=== PATIENT | male | born 1975 | race Two or more races ===

== ENCOUNTER 2022-05-18 09:13 | Inpatient (IN) | payer MEDICARE, MEDICAID ==
[~2022-05-18] VITALS: Ht 182.9 cm; Wt 85.0 kg
[2022-05-18 10:15] LABS: Albumin 3.8 g/dL (3.4-5.0); Calcium 8.9 mg/dL (8.5-10.1); Potassium 3.7 mmol/L (3.5-5.1)
[2022-05-18 10:19] LABS: BUN/Creatinine Ratio 33.8; Bilirubin, Total 0.6 mg/dL (0.2-1.0); Total Protein 7.6 g/dL (6.4-8.2)
[2022-05-18 10:20] LABS: Basophils # (auto) 0.1 10 ^3/uL (0-0.2); Basophils % (auto) 1.3 % (0.0-2.0); Eosinophils # (auto) 0.3 10 ^3/uL (0-0.8); Eosinophils % (auto) 6.8 % (0.0-7.0); Hematocrit 45.9 % (41.0-53.0); Hemoglobin 15.2 g/dL (13.5-17.5); Lymphocytes # (auto) 1.2 10 ^3/uL (0.4-5.4); Lymphocytes % (auto) 23.4 % (10.0-50.0); Mean Corpuscular Hemoglobin 29.3 pg (28.0-32.0); Mean Corpuscular Hgb Conc. 33.1 g/dL (32.0-36.0); Mean Corpuscular Volume 88.7 fL (80.0-100.0); Monocytes # (auto) 0.5 10 ^3/uL (0-1.3); Monocytes % (auto) 8.9 % (0.0-12.0); Neutrophils % (auto) 59.6 % (37.0-80.0); Red Blood Cells 5.17 10^6/uL (4.5-5.90); Red Cell Distribution Width 13.9 % (11.8-14.3); White Blood Cell 5.1 10^3/uL (4.4-10.8)
[2022-05-18 18:05] LABS: INR 1.03 (0.9-1.15)
[2022-05-18 18:09] LABS: Urine Bacteria NONE SEEN /hpf (None Seen); Urine Blood Negative /uL (Negative); Urine Mucus MANY (None Seen); Urine Specific Gravity 1.037 (1.001-1.035); Urine WBC 1 /hpf (0 - 3)
[2022-05-19 04:42] LABS: Basophils # (auto) 0.1 10 ^3/uL (0-0.2); Basophils % (auto) 1.2 % (0.0-2.0); Eosinophils # (auto) 0.5 10 ^3/uL (0-0.8); Eosinophils % (auto) 9.5 % (0.0-7.0); Hematocrit 42.5 % (41.0-53.0); Hemoglobin 14.3 g/dL (13.5-17.5); Lymphocytes # (auto) 1.5 10 ^3/uL (0.4-5.4); Lymphocytes % (auto) 30.7 % (10.0-50.0); Mean Corpuscular Hemoglobin 29.7 pg (28.0-32.0); Mean Corpuscular Hgb Conc. 33.6 g/dL (32.0-36.0); Mean Corpuscular Volume 88.4 fL (80.0-100.0); Monocytes # (auto) 0.5 10 ^3/uL (0-1.3); Monocytes % (auto) 10.3 % (0.0-12.0); Neutrophils # (auto) 2.3 10 ^3/uL (1.6-8.6); Neutrophils % (auto) 48.3 % (37.0-80.0); Nucleated Red Blood Cells % 0.1 %; White Blood Cell 4.8 10^3/uL (4.4-10.8)
[2022-05-19 05:06] LABS: Albumin 3.4 g/dL (3.4-5.0); BUN/Creatinine Ratio 37.3; Calcium 8.3 mg/dL (8.5-10.1); Potassium 3.9 mmol/L (3.5-5.1)
[2022-05-19 05:08] LABS: Bilirubin, Total 0.4 mg/dL (0.2-1.0); Total Protein 6.4 g/dL (6.4-8.2)
[2022-05-19] MEDS: SOD CHL 0.45% 1,000 ML IV SCH ×4 (07:58→22:56)
[2022-05-19] MEDS ORDERED: GOLYTELY 4L KIT PO ONE (12:00)
[2022-05-19 12:55] VITALS: BP 125/84
[2022-05-19 13:00] VITALS: BP 126/87
[2022-05-19 17:00] VITALS: BP 105/67
[2022-05-19 22:00] VITALS: BP 109/76
[2022-05-20 05:00] VITALS: BP 129/77
[2022-05-20] MEDS ORDERED: GOLYTELY 4L KIT PO ONE (06:00)
[2022-05-20] MEDS ORDERED: MAGNESIUM CITRATE SOLUTION 300 ML BTL PO ONE (06:00)
[2022-05-20 07:39] LABS: Basophils # (auto) 0.1 10 ^3/uL (0-0.2); Basophils % (auto) 1.3 % (0.0-2.0); Eosinophils # (auto) 0.4 10 ^3/uL (0-0.8); Hematocrit 46.2 % (41.0-53.0); Hemoglobin 15.7 g/dL (13.5-17.5); Lymphocytes # (auto) 1.4 10 ^3/uL (0.4-5.4); Lymphocytes % (auto) 36.1 % (10.0-50.0); Mean Corpuscular Hemoglobin 29.8 pg (28.0-32.0); Mean Corpuscular Volume 87.4 fL (80.0-100.0); Monocytes # (auto) 0.4 10 ^3/uL (0-1.3); Monocytes % (auto) 10.2 % (0.0-12.0); Neutrophils # (auto) 1.7 10 ^3/uL (1.6-8.6); Neutrophils % (auto) 43.4 % (37.0-80.0); Red Blood Cells 5.29 10^6/uL (4.5-5.90)
[2022-05-20 07:53] LABS: BUN/Creatinine Ratio 17.2; Calcium 8.6 mg/dL (8.5-10.1); Potassium 3.5 mmol/L (3.5-5.1)
[2022-05-20 09:00] VITALS: BP 120/84
[2022-05-20] MEDS: SOD CHL 0.45% 1,000 ML IV SCH ×2 (09:29→18:08)
[2022-05-20] MEDS ORDERED: PHENYLEPHRINE HCL 10 MG/ML VL IV ONE (11:39)
[2022-05-20] MEDS ORDERED: diphenhdrAMINE HCL 50 MG/1 ML VL ONE (12:28)
[2022-05-20] MEDS ORDERED: MIDAZOLAM HCL 5 MG/ML-1ML VIAL ONE (12:28)
[2022-05-20] MEDS ORDERED: SODIUM CHLORIDE LOCK 10 ML ONE (12:28)
[2022-05-20] MEDS ORDERED: fentaNYL CITRATE 100 MCG/2 ML VL ONE ×2 (12:29→16:02)
[2022-05-20 13:00] VITALS: BP 117/81
[2022-05-20] MEDS ORDERED: MEPERIDINE HCL (25 MG/ML) 1ML VIAL ONE (16:02)
[2022-05-20] MEDS ORDERED: MIDAZOLAM HCL 2MG/2ML 2ml VIAL (1mg/ml) ONE (16:02)
[2022-05-20] MEDS ORDERED: ePHEDrine SULFATE 50 MG/ML AMP IV PRN (16:15)
[2022-05-20] MEDS ORDERED: MORPHINE SULFATE 4 MG/ML SYR/VIAL IV PRN (16:15)
[2022-05-20] MEDS ORDERED: ONDANSETRON HCL 4 MG/2 ML VIAL IV PRN (16:15)
[2022-05-20] MEDS ORDERED: MIDAZOLAM HCL 2MG/2ML 2ml VIAL (1mg/ml) IV PRN (16:15)
[2022-05-20] MEDS ORDERED: LABETALOL HCL 5 MG/ML 4ML SYRINGE IV PRN (16:15)
[2022-05-20] MEDS ORDERED: DexAMETHasone SOD PHOS 10MG/1ML VIAL INJ ONE (16:19)
[2022-05-20] MEDS ORDERED: PROPOFOL 10 MG/ML 20 ML IV ONE (16:19)
[2022-05-20 17:48] VITALS: BP 134/84
[2022-05-20] MEDS: methylPREDNISolone SOD SUCC 40 MG/ML VL IV SCH (21:59)
[2022-05-20] MEDS: MESALAMINE 400mg Delayed Release Cap PO SCH (21:59)
[2022-05-20 22:00] VITALS: BP 134/88
[2022-05-21 05:00] VITALS: BP 119/73
[2022-05-21] MEDS: SOD CHL 0.45% 1,000 ML IV SCH (06:35)
[2022-05-21] MEDS: MESALAMINE 400mg Delayed Release Cap PO SCH (06:36)
[2022-05-21] MEDS: methylPREDNISolone SOD SUCC 40 MG/ML VL IV SCH (06:36)
[2022-05-21 09:00] VITALS: BP 128/78
[2022-05-21] MEDS ORDERED: MESA400C PO (09:49)
[2022-05-21] MEDS ORDERED: PRED20TA2 PO (09:49)
== END 2022-05-21 11:40 | disposition home or self-care (01) | DRG 386 ==
LOC: ER 09:13 → OVERFLOW 16:33 → CENTRAL 05-19 11:03
PROVIDERS: ADMIT Registered Nurse; ATTEND Internal Medicine Pulmonary Disease
PROC: 0DBN8ZX Excision of Sigmoid Colon, Via Natural or Artificial Opening Endoscopic, Diagnostic (ICD-10-PCS; principal; 2022-05-20 16:18)
DX: K51.30 Ulcerative (chronic) rectosigmoiditis without complications (principal); K92.2 Gastrointestinal hemorrhage, unspecified; R19.7 Diarrhea, unspecified; H54.7 Unspecified visual loss; Z20.822 Contact with and (suspected) exposure to COVID-19; K64.8 Other hemorrhoids; K63.9 Disease of intestine, unspecified; Z93.0 Tracheostomy status
CPT/HCPCS: 36415; 45380; 71045; 74176; 80048; 80053; 81001; 82270; 82378; 85025; 85610; 87045; 87427; G0378; J1100; J2250; J2704

== ENCOUNTER 2024-08-01 06:44 | Emergency (ER) | payer BC, MEDICAID ==
[~2024-08-01] VITALS: Ht 182.9 cm; Wt 81.7 kg
[~2024-08-01 06:44] MED LIST: MESA400C PO; PRED20TA2 PO
[2024-08-01 08:16] VITALS: BP 114/75; PULSE 77; RESP 16; TEMP 98.4; O2SAT 98
== END 2024-08-01 09:23 | disposition home or self-care (01) ==
LOC: ER 06:44
DX: R07.81 Pleurodynia (principal); W18.09XA Striking against other object with subsequent fall, initial encounter; Y93.89 Activity, other specified; Y92.89 Other specified places as the place of occurrence of the external cause; Y99.8 Other external cause status
CPT/HCPCS: 71101

== ENCOUNTER 2024-09-11 10:35 | Emergency (ER) | payer BC, MEDICAID ==
[~2024-09-11] VITALS: Ht 182.9 cm; Wt 77.5 kg
[2024-09-11] MEDS: methylPREDNISolone ACETATE 80 MG/ML VL IM ONE (11:30)
[2024-09-11 11:58] LABS: Basophils # (auto) 0 10 ^3/uL (0-0.2); Basophils % (auto) 0.4 % (0.0-2.0); Eosinophils # (auto) 0.2 10 ^3/uL (0-0.8); Eosinophils % (auto) 5.4 % (0.0-7.0); Hematocrit 44.5 % (41.0-53.0); Hemoglobin 15.2 g/dL (13.5-17.5); Lymphocytes # (auto) 0.6 10 ^3/uL (0.4-5.4); Lymphocytes % (auto) 15.6 % (10.0-50.0); Mean Corpuscular Hemoglobin 31.1 pg (28.0-32.0); Mean Corpuscular Hgb Conc. 34.1 g/dL (32.0-36.0); Mean Corpuscular Volume 91.4 fL (80.0-100.0); Monocytes # (auto) 0.4 10 ^3/uL (0-1.3); Monocytes % (auto) 10.8 % (0.0-12.0); Neutrophils # (auto) 2.6 10 ^3/uL (1.6-8.6); Neutrophils % (auto) 67.8 % (37.0-80.0); Nucleated Red Blood Cells % 0.1 %; Platelet Count (auto) 176 10^3/uL (140-450); Red Blood Cells 4.87 10^6/uL (4.5-5.90); Red Cell Distribution Width 14.4 % (11.8-14.3); White Blood Cell 3.9 10^3/uL (4.4-10.8)
[2024-09-11 12:17] LABS: Alanine Aminotransferase 24 U/L (7-40); Albumin 4.4 g/dL (3.2-4.8); Alkaline Phosphatase 78 U/L (46-116); Anion Gap 5 (5-15); Aspartate Aminotransferase 12 U/L (13-40); Blood Urea Nitrogen 18 mg/dL (9-23); Calcium 9.6 mg/dL (8.7-10.4); Carbon Dioxide 27 mmol/L (20-31); Chloride 110 mmol/L (98-107); Glucose 105 mg/dL (74-106); Potassium 4.2 mmol/L (3.5-5.1); Sodium 142 mmol/L (136-145)
[2024-09-11 12:18] LABS: Bilirubin, Total 0.4 mg/dL (0.2-1.0)
[2024-09-11 12:26] LABS: CRP High Sensitivity 1.66 mg/dL (<1.0)
[2024-09-11 13:03] VITALS: BP 134/68; PULSE 98; RESP 16; TEMP 98.4; O2SAT 95
[2024-09-11] MEDS ORDERED: DIPH25CA66 PO (13:18)
[2024-09-11] MEDS ORDERED: VALA1TAB PO (13:18)
[2024-09-11] MEDS ORDERED: VALA500T33 PO (13:18)
[2024-09-11] MEDS ORDERED: PRED20TA2 PO (13:18)
--- NOTE | 2024-09-11 13:19 | ED.PDOC ---
History of Present Illness(SKN HPI Comments 48-year-old male patient presents to the clinic for a rash to bilateral extremities in the neck. Patient reports that the rash started 4 days ago. Patient denies any new medications. Patient denies any new skin products patient denies any new foods. Patient reports that the rash is itchy in nature. Patient has been applying Benadryl cream which has helped minimally. Patient denies any shortness of breath or chest pain. Patient denies having a rash of this nature previously Chief Complaint: Rash Time Seen by MD: 10:52 Primary Care Provider: unknown History of Present Illness: Nurses Notes, Medications, Allergies Allergies: Coded Allergies: NO KNOWN ALLERGIES (Unverified , 05/18/22) Home Meds Active Scripts Valacyclovir Hcl (Valtrex) 1 Gm Tab, 1 TAB PO TID for 7 Days, #21 TAB 0 Refills Prov:[facility] 09/11/24 Prednisone (Prednisone) 20 Mg Tab, 50 MG PO DAILY for 5 Days, #5 TAB 0 Refills Prov:[facility] 09/11/24 Diphenhydramine Hcl (Benadryl Allergy) 25 Mg Cap, 2 CAP PO Q8HP PRN for 7 Days, #60 CAP 2 Refills Prov:[facility] 09/11/24 Prednisone (Prednisone) 20 Mg Tab, 40 MG PO DAILY for 14 Days, #28 TAB Prov:DOM SIFUENTES MD 05/21/22 Mesalamine (DELZICOL) 400 Mg Cap, 800 MG PO TID for 30 Days, #30 CAP Prov:DOM SIFUENTES MD 05/21/22 Information Source: Patient Mode of Arrival: Ambulatory Past Medical History Past Medical History (Other): TBI Surgical History: Denies all surgeries Family History Family History: Reviewed,noncontributory to illness Social History Smoker: Non-Smoker Alcohol: Denies ETOH Use Drugs: Denies Drug Use Lives In: Home Constitutional: denies: chills, diaphoresis, fatigue, fever, malaise, sweats, weakness, others EENTM: denies: blurred vision, double vision, ear bleeding, ear discharge, ear drainage, ear pain, ear ringing, eye pain, eye redness, hearing loss, mouth p ain, mouth swelling, nasal discharge, nose bleeding, nose congestion, nose pain, photophobia, tearing, throat pain, throat swelling, voice changes, others Respiratory: denies: cough, hemoptysis, orthopnea, SOB at rest, shortness of br eath, SOB with excertion, stridor, wheezing, others Cardiovascular: denies: chest pain, dizzy spells, diaphoresis, Dyspnea on exertion, edema, irregular heart beat, left arm pain, lightheadedness, palpitations, PND, syncope, others Gastrointestinal: denies: abdomen distended, abdominal pain, blood streaked bowels, constipated, diarrhea, dysphagia, difficulty swallowing, hematemesis, melena, nausea, poor appetite, poor fluid intake, rectal bleeding, rectal pain, vomiting, others Genitourinary: denies: burning, dysuria, flank pain, frequency, hematuria, incontinence, penile discharge, penile sore, pain, testicle pain, testicle swelling, urgency, others Neurological: denies: dizziness, fainting, headache, left sided numbness, left sided weakness, numbness, paresthesia, pre-existing deficit, right sided numbness, right sided weakness, seizure, speech problems, tingling, tremors, weakness, others Musculoskeletal: denies: back pain, gout, joint pain, joint swelling, muscle pain, muscle stiffness, neck pain, others Integumetry: reports: rash Allergic/Immunocompromised: denies: Difficulty Healing, Frequent Infections, Hives, Itching, others Hematologic/Lymphatic: denies: anemia, blood clots, easy bleeding, easy bruising, swollen glands, others Endocrine: denies: excessive hunger, excessive sweating, excessive thirst, excessive urination, flushing, intolerance to cold, intolerance to heat, unexplained weight gain, unexplained weight loss, others Psychiatric: denies: anxiety, bipolar disorder, depression, hopeless, panic disorder, schizophrenia, sleepless, suicidal, others All Other Systems: Reviewed and Negative Physical Exam General Appearance: No Apparent Distress, Normal HEENT: Normal ENT Inspection, Pharynx Normal, TMs Normal Neck: Full Range of Motion, Non-Tender, Normal, Normal Inspection Respiratory: Chest Non-Tender, Lungs Clear, No Accessory Muscle Use, No Respiratory Distress, Normal Breath Sounds Cardiovascular: No Edema, No JVD, No Murmur, No Gallop, Normal Peripheral Pulses, Regular Rate/Rhythm Breast Exam: Deferred Gastrointestinal: No Organomegaly, Non Tender, No Pulsatile Mass, Normal Bowel Sounds, Soft Genitalia: Deferred Pelvic: Deferred Rectal: Deferred Extremities: No calf tenderness, Normal capillary refill, Normal inspection, Normal range of motion, Non-tender, No pedal edema Musculoskeletal : Apperance: Normal Neurologic: Alert, 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 No rash noted to palms of hands. No rash noted to trunk of body. No rash noted to the legs. Patient complaining itchiness) Lymphatic: None, No Adenopathy Was a procedure done? Was a procedure done?: No Differential Diagnosis (INTG) Differential Diagnosis: Cellulitis Differential Diagnosis: Cellulitis, Contact Dermatitis, Herpes Zoster/Simplex, Impetigo, Scabies, Varicella Differential Diagnosis: N/A Abscess: N/A Differential Diagnosis: N/A X-Ray, Labs, Meds, VS Vital Signs Date Time Temp Pulse Resp B/P (MAP) Pulse Ox O2 Delivery O2 Flow Rate FiO2 09/11/24 13:03 98.4 99 16 134/68 (90) 95 98.4 09/11/24 13:03 98 16 95 Room Air 09/11/24 10:44 98.3 107 16 131/63 (85) 93 Lab Test 09/11/24 11:20 Range/Units White Blood Count 3.9 L 4.4-10.8 10^3/uL Red Blood Count 4.87 4.5-5.90 10^6/uL Hemoglobin 15.2 13.5-17.5 g/dL Hematocrit 44.5 41.0-53.0 % Mean Corpuscular Volume 91.4 80.0-100.0 fL Mean Corpuscular Hemoglobin 31.1 28.0-32.0 pg Mean Corpuscular Hemoglobin Concent 34.1 32.0-36.0 g/dL Red Cell Distribution Width 14.4 H 11.8-14.3 % Platelet Count 176 140-450 10^3/uL Mean Platelet Volume 8.5 6.9-10.8 fL Neutrophils (%) (Auto) 67.8 37.0-80.0 % Lymphocytes (%) (Auto) 15.6 10.0-50.0 % Monocytes (%) (Auto) 10.8 0.0-12.0 % Eosinophils (%) (Auto) 5.4 0.0-7.0 % Basophils (%) (Auto) 0.4 0.0-2.0 % Neutrophils # (Auto) 2.6 1.6-8.6 10 ^3/uL Lymphocytes # (Auto) 0.6 0.4-5.4 10 ^3/uL Monocytes # (Auto) 0.4 0-1.3 10 ^3/uL Eosinophils # (Auto) 0.2 0-0.8 10 ^3/uL Basophils # (Auto) 0 0-0.2 10 ^3/uL Nucleated Red Blood Cells 0.1 % Sodium Level 142 136-145 mmol/L Potassium Level 4.2 3.5-5.1 mmol/L Chloride Level 110 H 98-107 mmol/L Carbon Dioxide Level 27 20-31 mmol/L Anion Gap 5 5-15 Blood Urea Nitrogen 18 9-23 mg/dL Creatinine 0.90 0.700-1.30 mg/dL Glomerular Filtration Rate Calc 106 >90 mL/min BUN/Creatinine Ratio 20.0 10.0-20.0 Serum Glucose 105 74-106 mg/dL Calcium Level 9.6 8.7-10.4 mg/dL Total Bilirubin 0.4 0.2-1.0 mg/dL Aspartate Amino Transferase (AST) 12 L 13-40 U/L Alanine Aminotransferase (ALT) 24 7-40 U/L Alkaline Phosphatase 78 46-116 U/L C-Reactive Protein High Sensitivity 1.66 H <1.0 mg/dL Total Protein 7.0 5.7-8.2 g/dL Albumin 4.4 3.2-4.8 g/dL Current Medications Medications (Trade) Dose Ordered Sig/Jose Route Start Time Stop Time Status Last Admin Methylprednisolone Acetate (DEPO-Medrol) 40 mg ONCE ONCE IM 09/11/24 11:15 09/11/24 11:23 DC 09/11/24 11:30 X-Ray, Labs, Meds, VS Comment On re-evaluation patient has symptomatic improvement. Patient is stable for discharge at this time. All test results and diagnostic imaging have been interpreted. All diagnostic findings, discharge care, and education instruction provided to the patient. Follow-up with PCP in 2-3 days Patient verbalized understanding, discharge instructions and agrees to treatment plan Vital signs are stable Patient is ambulatory Patient advised of which symptoms necessitate a return visit to the emergency room. Patient to return emergency room for any new worsening symptoms. Patient is aware that the purpose of this visit is for an acute medical emergency requiring emergent stabilization. Chronic conditions, including malignancies have not been ruled out. Patient is instructed to follow up with PCP as directed for continued care and workup. If unable to arrange follow up, patient is to return to the emergency room for reassessment. Patient was given verbal and written discharge instructions and acknowledges understanding Time of 1ST Reevaluation: 12:45 Reevaluation 1ST: Improved Patient Education/Counseling: Diagnosis, Treatment, Prognosis Family Education/Counseling: Diagnosis, Treatment, Prognosis Departure 1 Departure Time of Disposition: 13:12 Impression: Primary Impression: Vesicular dermatitis Disposition: HOME / SELF CARE / HOMELESS Condition: Stable e-Prescriptions Valacyclovir Hcl (Valtrex) 1 Gm Tab 1 TAB PO TID for 7 Days, #21 TAB 0 Refills Prov: [facility] 09/11/24 Prednisone (Prednisone) 20 Mg Tab 50 MG PO DAILY for 5 Days, #5 TAB 0 Refills Prov: [facility] 09/11/24 Diphenhydramine Hcl (Benadryl Allergy) 25 Mg Cap 2 CAP PO Q8HP PRN for 7 Days, #60 CAP 2 Refills Prov: [facility] 09/11/24 Critical Care Note Critical Care Time?: No Stability Stability form required: No Heart Score Heart Score: Heart Score Response (Comments) Value History N/A 0 EKG N/A 0 Age N/A 0 Risk Factors N/A 0 Troponin N/A 0 Total 0 [facility] Sep 11, 2024 13:19
== END 2024-09-11 13:34 | disposition home or self-care (01) ==
LOC: ER 10:35
DX: L30.8 Other specified dermatitis (principal); Z87.820 Personal history of traumatic brain injury; Z79.52 Long term (current) use of systemic steroids; Z79.624 Long term (current) use of inhibitors of nucleotide synthesis; Z79.899 Other long term (current) drug therapy
CPT/HCPCS: 36415; 80053; 85025; 86141; 96372; 99283; J1010